=== PATIENT | male | born 1970 | race Asian ===

== ENCOUNTER 2024-07-28 06:16 | Day surgery (SDC) | payer OTHER, SELFPAY | END 2024-07-28 08:19 | disposition home or self-care (01) | LOC: GI 06:16 | PROVIDERS: ATTENDING PHYSICIAN Internal Medicine Gastroenterology | DX: Z12.11 Encounter for screening for malignant neoplasm of colon (principal); K64.8 Other hemorrhoids | CPT/HCPCS: G0121 ==